=== PATIENT | male | born 1990 | race Caucasian/White ===

== ENCOUNTER 2021-06-26 22:55 | Emergency (ER) | payer MEDICAID ==
[~2021-06-26] VITALS: Ht 190.5 cm; Wt 81.8 kg
[~2021-06-26 22:55] MED LIST: PYRA144O PO
[2021-06-26 23:24] VITALS: BP 125/88
[2021-06-27] MEDS ORDERED: CEPH-585 PO (00:18)
== END 2021-06-27 00:26 | disposition home or self-care (01) ==
LOC: ER 22:55
DX: L97.919 Non-pressure chronic ulcer of unspecified part of right lower leg with unspecified severity (principal); F12.90 Cannabis use, unspecified, uncomplicated; Z79.2 Long term (current) use of antibiotics; Z79.899 Other long term (current) drug therapy
CPT/HCPCS: 99283